=== PATIENT | male | born 1965 | race Caucasian/White ===

== ENCOUNTER 2017-01-30 11:08 | Observation (INO) | payer OTHER ==
[2017-01-30] MEDS ORDERED: APRESOLINE 20 MG/ML INJ IV SCH (11:30)
[2017-01-30 12:45] LABS: BASOPHIL % 0.3 % (0.0-0.4); Eosinophil % 1.6 % (0.00-5.0); Granulocytes % 77.6 % (36.0-66.0); Lymphocytes % 12.6 % (24.0-44.0); Mean Cell Volume 84.4 fl (78-100); Mean Platelet Volume 11.1 fl (6-9.5); Monocytes % 7.9 % (0.0-12.0); Platelet Count 307 K/mm3 (150-450); Red Blood Count 4.43 M/mm3 (4.1-5.6); White Blood Count 10.3 K/mm3 (4.0-10.5)
[2017-01-30 12:48] LABS: ALBUMIN 3.2 g/dL (3.4-5.0); ANION GAP 14.1 MEQ/L (5-15); BILIRUBIN,TOTAL 0.3 mg/dL (0.2-1.0); Carbon Dioxide 23.4 mEq/L (21-32); PHOSPHOROUS 2.9 mg/dL (2.6-4.7); Potassium 4.3 mEq/L (3.5-5.1); Total Protein 6.8 gm/dL (6.4-8.2)
[2017-01-30 12:49] LABS: Mean Corpuscular Hemoglobin 27.7 pg (26-32)
[2017-01-30] MEDS ORDERED: BABY ASPIRIN 81 MG CHEW PO ONE (12:53)
[2017-01-30] MEDS: Catapres 0.1 MG PO PRN ×4 (13:21→18:05)
[2017-01-30 14:32] LABS: Bilirubin NEGATIVE (NEGATIVE); COMPLETE URINE MICROSCOPIC? YES; Collection Type VOID; Glucose TRACE mg/dL (NEGATIVE); Leukocyte Esterase NEGATIVE (NEGATIVE)
[2017-01-30 14:52] LABS: Bacteria RARE /HPF (NEGATIVE); Epithelial Cells RARE /HPF (FEW); WBC 0-2 /HPF (0-5)
[2017-01-30] MEDS: Ativan 2 MG/1 ML VIAL IV PRN (17:16)
[2017-01-30] MEDS ORDERED: TYLENOL 325 MG PO PRN (18:52)
[2017-01-30] MEDS: Apresoline 25 MG TABLET PO SCH ×2 (19:28→22:00)
[2017-01-30] MEDS: Nicoderm CQ 21 MG TOP SCH (19:29)
[2017-01-31] MEDS ORDERED: Catapres 0.1 MG ONE (00:20)
[2017-01-31] MEDS: Catapres 0.1 MG PO PRN ×5 (00:22→15:50)
[2017-01-31] MEDS: Ativan 2 MG/1 ML VIAL IV PRN ×3 (00:24→16:47)
[2017-01-31 06:15] LABS: Carbon Dioxide 23.3 mEq/L (21-32); Potassium 3.9 mEq/L (3.5-5.1)
[2017-01-31] MEDS: Apresoline 25 MG TABLET PO SCH ×4 (08:46→21:08)
--- NOTE | 2017-01-31 10:40 | PCM.HP ---
History of Present Illness - Chief Complaint Chief Complaint: HTN Urgency Date: 01/31/17 History of Present Illness: Mr.WILROY PRINCE is a 51 year old male. who was hospitalized several months ago with malignant hypertension and renal failure at [facility] since that time he was to follow up with Dr. Fierro nephrology for renal biopsy but missed appointment. He has not taken any of his blood pressure medications he was prescribed in at least a month and has been feeling very weak and tired. He also is now going through a divorce with his and is unemployed from previously working at the [employer]. He states he is not drinking or using drugs and it has been weeks since he last used meth. He presented to the clinic with his mother who brought him as he has no transportation and she flew in from [place] as she was worried about his well being. He denies any thoughts of suicide or self harm. He was tearful yesterday on exam in the office and seems to be improving today. He denies any chest pain, shortness of breath or headache. no nausea or vomiting. no vision changes. - Review of Systems Constitutional: Fatigue, Malaise, No Fever, No Chills Eyes: No Symptoms Ears, Nose, & Throat: No Symptoms Respiratory: No Cough, No Short Of Breath Cardiac: No Chest Pain, No Edema, No Syncope Abdominal/Gastrointestinal: No Abdominal Pain, No Nausea, No Vomiting, No Diarrhea Genitourinary Symptoms: No Dysuria Musculoskeletal: No Back Pain, No Neck Pain Skin: No Rash Neurological: No Dizziness, No Focal Weakness, No Sensory Changes Psychological: Drug Abuse, Anxiety, Depression, Mood Changes, No Suicidal Ideations, No Hallucinations Endocrine: No Symptoms Hematologic/Lymphatic: No Symptoms Immunological/Allergic: No Symptoms Medications & Allergies Home Medications: Home Medication List No Reportable Medications [No Reported Medications] 01/30/17 [History Confirmed 01/30/17] Allergies/Adverse Reactions: Allergies Allergy/AdvReac Type Severity Reaction Status Date / Time No Known Drug Allergies Allergy Unverified 01/30/17 13:09 - Past Medical History Past Medical History: Yes Neurological History: No Pertinent History ENT History: No Pertinent History Cardiac History: Hypertension Respiratory History: No Pertinent History Endocrine Medical History: No Pertinent History Musculoskelatal History: No Pertinent History GI Medical History: No Pertinent History History: No Pertinent History Pyscho-Social History: No Pertinent History Male Reproductive Disorders: No Pertinent History - Past Surgical History Past Surgical History: No Neuro Surgical History: No Pertinent History Cardiac History: No Pertinent History Respiratory Surgery: No Pertinent History GI Surgical History: No Pertinent History Genitourinary Surgical Hx: No Pertinent History Musculskeletal Surgical Hx: No Pertinent History Male Surgical History: No Pertinent History - Social History Smoking Status: Current every day smoker How long have you smoked: many years Exposure to second hand smoke: Yes Alcohol: Rarely Drug Use: none - Physical Exam Vital Signs: Vital Signs - 24 hr Temp Pulse Resp BP BP Pulse Ox 01/31/17 08:00 97.1 F 76 21 201/120 96 01/31/17 04:00 57 L 16 153/84 98 01/31/17 00:15 98.0 F 67 16 185/97 98 01/31/17 00:01 67 01/30/17 22:00 73 16 176/89 97 01/30/17 20:00 68 01/30/17 19:30 98.2 F 65 16 184/112 98 01/30/17 16:00 98.5 F 72 13 160/92 98 01/30/17 13:22 98.4 F 74 18 209/123 98 01/30/17 12:00 98.4 F 74 18 202/113 98 01/30/17 11:40 98.4 F 74 18 221/118 98 General Appearance: no apparent distress, alert Neurologic Exam: alert, oriented x 3, cooperative, nml cerebellar function, nml station & gait, sensation nml, depressed mood/affect, No normal mood/affect, No motor deficits Eye Exam: PERRL/EOMI, eyes nml inspection Ears, Nose, Throat Exam: normal ENT inspection, pharynx normal, moist mucous membranes Neck Exam: normal inspection, non-tender, supple, full range of motion Respiratory Exam: normal breath sounds, lungs clear, No respiratory distress Cardiovascular Exam: regular rate/rhythm, normal heart sounds, normal peripheral pulses Gastrointestinal/Abdomen Exam: soft, normal bowel sounds, No tenderness, No mass Back Exam: normal inspection, normal range of motion, No CVA tenderness, No vertebral tenderness Extremity Exam: normal inspection, normal range of motion, pelvis stable Skin Exam: normal color, warm, dry, No rash Lymphatic Exam: No adenopathy Results - Labs Lab/Micro Results: Lab Results-Last 24 Hours 01/30/17 01/30/17 01/30/17 Range/Units 12:00 12:00 14:28 WBC 10.3 (4.0-10.5) K/mm3 RBC 4.43 (4.1-5.6) M/mm3 Hgb 12.3 L (12.5-18.0) gm/dl Hct 37.4 L (42-50) % MCV 84.4 (78-100) fl MCH 27.7 (26-32) pg MCHC 32.9 (32-36) g/dl RDW 15.0 H (11.5-14.0) % Plt Count 307 (150-450) K/mm3 MPV 11.1 H (6-9.5) fl Gran % 77.6 H (36.0-66.0) % Lymphocytes % 12.6 L (24.0-44.0) % Monocytes % 7.9 (0.0-12.0) % Eosinophils % 1.6 (0.00-5.0) % Basophils % 0.3 (0.0-0.4) % Basophils # 0.03 (0-0.4) Sodium 141 (136-145) mEq/L Potassium 4.3 (3.5-5.1) mEq/L Chloride 108 H (98-107) mEq/L Carbon Dioxide 23.4 (21-32) mEq/L Anion Gap 14.1 (5-15) MEQ/L BUN 32 H (9-20) mg/dL Creatinine 2.78 H (0.55-1.30) mg/dl Estimated GFR 26 ML/MIN Glucose 91 (70-110) MG/DL Calcium 8.4 L (8.5-10.1) mg/dL Phosphorus 2.9 (2.6-4.7) mg/dL Total Bilirubin 0.30 (0.2-1.0) mg/dL AST 30 (15-37) U/L ALT 27 (12-78) U/L Alkaline Phosphatase 139 H (46-116) U/L Serum Total Protein 6.8 (6.4-8.2) gm/dL Albumin 3.2 L (3.4-5.0) g/dL Ur Collection Type VOID Urine Color YELLOW (YELLOW) Urine Appearance CLEAR (CLEAR) Urine pH 6.0 (5-6) Ur Specific Gordon 1.015 (1.005-1.025) Urine Protein 3+ (Negative) Urine Ketones NEGATIVE (NEGATIVE) Urine Blood 5-10 (0-5) Sherwin/ul Urine Nitrite NEGATIVE (NEGATIVE) Urine Bilirubin NEGATIVE (NEGATIVE) Urine Urobilinogen NORMAL (0-1) mg/dL Ur Leukocyte Esterase NEGATIVE (NEGATIVE) Urine Microscopic RBC 0-2 (0-2) /HPF Urine Microscopic WBC 0-2 (0-5) /HPF Ur Epithelial Cells RARE (FEW) /HPF Urine Bacteria RARE (NEGATIVE) /HPF Urine Glucose TRACE (NEGATIVE) mg/dL Urine Opiates Level (NEGATIVE) Ur Methadone (NEGATIVE) Urine Barbiturates (NEGATIVE) Ur Phencyclidine (PCP) (NEGATIVE) Urine Amphetamine (NEGATIVE) U Benzodiazepine Level (NEGATIVE) Urine Cocaine (NEGATIVE) Urine Marijuana (THC) (NEGATIVE) Specimen Received 01/30/17 1420 01/30/17 01/31/17 Range/Units 14:28 05:25 WBC (4.0-10.5) K/mm3 RBC (4.1-5.6) M/mm3 Hgb (12.5-18.0) gm/dl Hct (42-50) % MCV (78-100) fl MCH (26-32) pg MCHC (32-36) g/dl RDW (11.5-14.0) % Plt Count (150-450) K/mm3 MPV (6-9.5) fl Gran % (36.0-66.0) % Lymphocytes % (24.0-44.0) % Monocytes % (0.0-12.0) % Eosinophils % (0.00-5.0) % Basophils % (0.0-0.4) % Basophils # (0-0.4) Sodium 140 (136-145) mEq/L Potassium 3.9 (3.5-5.1) mEq/L Chloride 109 H (98-107) mEq/L Carbon Dioxide 23.3 (21-32) mEq/L Anion Gap 12.0 (5-15) MEQ/L BUN 33 H (9-20) mg/dL Creatinine 2.72 H (0.55-1.30) mg/dl Estimated GFR 26 ML/MIN Glucose 95 (70-110) MG/DL Calcium 8.1 L (8.5-10.1) mg/dL Phosphorus (2.6-4.7) mg/dL Total Bilirubin (0.2-1.0) mg/dL AST (15-37) U/L ALT (12-78) U/L Alkaline Phosphatase (46-116) U/L Serum Total Protein (6.4-8.2) gm/dL Albumin (3.4-5.0) g/dL Ur Collection Type Urine Color (YELLOW) Urine Appearance (CLEAR) Urine pH (5-6) Ur Specific Gordon (1.005-1.025) Urine Protein (Negative) Urine Ketones (NEGATIVE) Urine Blood (0-5) Sherwin/ul Urine Nitrite (NEGATIVE) Urine Bilirubin (NEGATIVE) Urine Urobilinogen (0-1) mg/dL Ur Leukocyte Esterase (NEGATIVE) Urine Microscopic RBC (0-2) /HPF Urine Microscopic WBC (0-5) /HPF Ur Epithelial Cells (FEW) /HPF Urine Bacteria (NEGATIVE) /HPF Urine Glucose (NEGATIVE) mg/dL Urine Opiates Level NEG. (NEGATIVE) Ur Methadone NEG. (NEGATIVE) Urine Barbiturates NEG. (NEGATIVE) Ur Phencyclidine (PCP) NEG. (NEGATIVE) Urine Amphetamine POS. (NEGATIVE) U Benzodiazepine Level NEG. (NEGATIVE) Urine Cocaine NEG. (NEGATIVE) Urine Marijuana (THC) NEG. (NEGATIVE) Specimen Received - Other Procedures and Tests Respiratory Therapy 01/30/17 12:39 EKG STAT Assessment/Plan (1) Hypertensive urgency Current Visit: Yes Status: Acute Assessment & Plan: he was treated with iv hydralazine yesterday and po clonidine and improved from initial presentation at clinic of 240/160 he was started then on hydralazine 50 mg po qid and continued to need the clonidine 0.1 mg intermittently to keep bp under 180/110. This am still in the 200 range systolic after initial improvement. he was also given lorazepam iv for anxiety given the + amphetamine on the drug screen but denies recent use. He remains asymptomatic, His EKG was compared to OLD from clinic record with same findings of severe LVH likely. he had large work up in [facility] for the same problem 2 months ago and has missed f/u with Dr. Fierro for this during that visit mame inhibitor significantly worsened his renal function will add amlodipine 10 mg daily continue hydralazine 50 mg QID and start clonidine 0.2 mg TID and use clonidine prn for bp >180/110 goal to get bp in the 160/100 range or better and then arrange for outpatient follow up discussed his mood in detail. He is guarded in his responses and details but denies suicidal or homicidal ideation. Did agree to trying antidepressant and will start prozac 20 mg daily also agreed to tele mental health consult as well given his + drug screen. Code(s): I16.0 - HYPERTENSIVE URGENCY (2) CKD stage 4 secondary to hypertension Current Visit: Yes Status: Acute Code(s): I12.9 - HYPERTENSIVE CHRONIC KIDNEY DISEASE W STG 1-4/UNSP CHR KDNY; N18.4 - CHRONIC KIDNEY DISEASE, STAGE 4 (SEVERE) (3) Amphetamine abuse, episodic Current Visit: Yes Status: Acute Code(s): F15.10 - OTHER STIMULANT ABUSE, UNCOMPLICATED (4) Depression Current Visit: Yes Status: Acute Code(s): F32.9 - MAJOR DEPRESSIVE DISORDER , SINGLE EPISODE, UNSPECIFIED
[2017-01-31] MEDS: Prozac 20 MG PO SCH (11:28)
[2017-01-31] MEDS: NORVASC 5 MG PO SCH (11:29)
[2017-01-31] MEDS: Catapres 0.1 MG PO SCH ×3 (11:37→21:08)
[2017-01-31] MEDS: Nicoderm CQ 21 MG TOP SCH (19:08)
[2017-02-01] MEDS: Catapres 0.1 MG PO SCH ×2 (00:30→09:03)
[2017-02-01] MEDS: Ativan 2 MG/1 ML VIAL IV PRN (04:22)
[2017-02-01] MEDS: Prozac 20 MG PO SCH (09:03)
[2017-02-01] MEDS: NORVASC 5 MG PO SCH (09:03)
[2017-02-01] MEDS: Apresoline 25 MG TABLET PO SCH (09:06)
--- NOTE | 2017-02-01 09:24 | PCM.DCORD ---
- Discharge Discharge Date: 02/01/17 Disposition: Home, Self-Care Condition: Stable Prescriptions: New Clonidine HCl [Catapres] 0.2 mg PO TID #90 tablet Hydralazine HCl 100 mg PO TID #90 tablet Amlodipine Besylate 10 mg [Norvasc 10 MG] 10 mg PO DAILY #30 tablet Fluoxetine HCl [Prozac] 20 mg PO DAILY #30 capsule Trazodone HCl 100 mg PO HS PRN #30 tablet PRN Reason: Insomnia Hydroxyzine Pamoate [Vistaril] 25 mg PO Q6H PRN #60 capsule PRN Reason: Anxiety Follow up with: JANAK DARNELL [Primary Care Provider] - 1 Week SCOOTER CARRERA [NON-STAFF PHY W/O PRIVILEGES] - 1 Week Forms: Discharge Instructions
--- NOTE | 2017-02-01 10:56 | PCM.DCORD ---
- Discharge Discharge Date: 02/01/17 Disposition: Home, Self-Care Condition: Stable Prescriptions: New Clonidine HCl [Catapres] 0.2 mg PO TID #90 tablet Hydralazine HCl 100 mg PO TID #90 tablet Amlodipine Besylate 10 mg [Norvasc 10 MG] 10 mg PO DAILY #30 tablet Trazodone HCl 100 mg PO HS PRN #30 tablet PRN Reason: Insomnia Hydroxyzine Pamoate [Vistaril] 25 mg PO Q6H PRN #60 capsule PRN Reason: Anxiety Citalopram Hydrobromide 20 mg* [ceLEXa 20 MG] 20 mg PO DAILY #30 tablet Instructions: Kidney Failure, Renal (Kidney) Disease Diet -- For People Not on Dialysis, Hypertension Follow up with: JANAK DARNELL [Primary Care Provider] - 1 Week SCOOTER CARRERA [NON-STAFF PHY W/O PRIVILEGES] - 1 Week Forms: Discharge Instructions
--- NOTE | 2017-02-01 11:37 | PCM.DS ---
Discharge Summary Date of Admission: 01/30/17 11:08 Date of Discharge: 02/01/17 Admitting Physician: JANAK DARNELL Primary Care Provider: JANAK DARNELL Allergies Allergies No Known Drug Allergies Allergy (Unverified 01/30/17 13:09) Hospital Summary - Hospital Course Hospital Course: Mr. Levi presented to clinic with extreme fatigue and had not been taking his medications for htn for at least a month. His bp was 240/160 on arrival but denied headache or chest pain or shortness of breath. He denied any recent amphetamine use or abuse but his drug screen was positive for amphetamines. He continued to deny its use after this. He was to follow up with Dr. Carrera nephrology for his ckd but missed the appointment. His pressure was brought down with po and iv medications and continued to improve on schedule po medications. on his last visit at [facility] he had significant worsening of renal function on the mame inhibitor and thus we did not use mame inhibitor or arb until he follows up with nehprology. He was feeling ok at time of discharge. He has significant stressors as his is him and he has not been sleeping. He does not want to elaborate on this but denies feelings of suicidal or homicidal ideation and his mother has stayed with him as she has flown in from [place] over concerns of his health and is helping him to get his life back together. Will increase hydralazine a little more and discharge to home with close outpatient follow up to continue to titrate the medications for optimal control as well as f/u with nephrology. His renal function on presentation was actually a little improved from his last discharge. - Vitals & Intake/Output Vital Signs: Vital Signs Temperature 97.6 F 02/01/17 07:41 Pulse Rate 98 H 02/01/17 07:41 Respiratory Rate 18 02/01/17 07:41 Blood Pressure 173/86 02/01/17 07:41 O2 Sat by Pulse Oximetry 98 02/01/17 07:41 Intake & Output: Intake & Output 01/29/17 01/30/17 01/31/17 02/01/17 11:59 11:59 11:59 11:59 Intake Total 1510 480 Output Total 1900 1425 Balance -390 -945 Weight 114.8 kg - Lab Result Diagrams: 01/30/17 12:00 01/31/17 05:25 - Procedures and Test Procedures and Tests throughout Hospitalization: Therapy Orders & Screens 01/30/17 12:39 EKG STAT Comment: Discharge Exam General Appearance: no apparent distress, alert Neurologic Exam: alert, oriented x 3, cooperative, nml cerebellar function, sensation nml, depressed mood/affect, No motor deficits Skin Exam: normal color, warm, dry Eye Exam: PERRL, EOMI, eyes nml inspection Ears, Nose, Throat Exam: normal ENT inspection, pharynx normal, moist mucous membranes Neck Exam: normal inspection, non-tender, supple, full range of motion Respiratory Exam: normal breath sounds, lungs clear, No respiratory distress Cardiovascular Exam: regular rate/rhythm, normal heart sounds Gastrointestinal/Abdomen Exam: soft, No tenderness, No mass Extremity Exam: normal inspection, normal range of motion Back Exam: normal inspection, normal range of motion, No CVA tenderness, No vertebral tenderness Male Genitalia Exam: deferred Rectal Exam: deferred Final Diagnosis/Problem List - Final Discharge Diagnosis/Problem (1) Hypertensive urgency Current Visit: Yes Status: Acute (2) CKD stage 4 secondary to hypertension Current Visit: Yes Status: Acute (3) Amphetamine abuse, episodic Current Visit: Yes Status: Acute (4) Depression Current Visit: Yes Status: Acute - Discharge Discharge Date: 02/01/17 Disposition: Home, Self-Care Condition: Stable Prescriptions: New Clonidine HCl [Catapres] 0.2 mg PO TID #90 tablet Hydralazine HCl 100 mg PO TID #90 tablet Amlodipine Besylate 10 mg [Norvasc 10 MG] 10 mg PO DAILY #30 tablet Trazodone HCl 100 mg PO HS PRN #30 tablet PRN Reason: Insomnia Hydroxyzine Pamoate [Vistaril] 25 mg PO Q6H PRN #60 capsule PRN Reason: Anxiety Citalopram Hydrobromide 20 mg* [ceLEXa 20 MG] 20 mg PO DAILY #30 tablet Instructions: Kidney Failure, Renal (Kidney) Disease Diet -- For People Not on Dialysis, Hypertension Follow up with: JANAK DARNELL [Primary Care Provider] - 1 Week SCOOTER CARRERA [NON-STAFF PHY W/O PRIVILEGES] - 1 Week Forms: Discharge Instructions
[2017-02-01 11:52] VITALS: BP 161/94; PULSE 64; O2SAT 97
== END 2017-02-01 12:04 | disposition home or self-care (01) ==
LOC: ICU 11:08 → MED SURG 01-31 16:09
PROVIDERS: ADMIT Family Medicine; ATTEND Family Medicine
DX: I16.0 Hypertensive urgency (principal); I12.9 Hypertensive chronic kidney disease with stage 1 through stage 4 chronic kidney disease, or unspecified chronic kidney disease; N18.4 Chronic kidney disease, stage 4 (severe); F41.9 Anxiety disorder, unspecified; F15.10 Other stimulant abuse, uncomplicated; F32.9 Major depressive disorder, single episode, unspecified
CPT/HCPCS: 36415; 80048; 80053; 80307; 81000; 84100; 85025; 90791; 93005; G0378; J0360; J2060; Q3014; A9270-GY